=== PATIENT | male | born 1970 ===

== ENCOUNTER 2017-01-14 06:56 | Day surgery (SDC) | payer BC, OTHER ==
[~2017-01-14 06:56] MED LIST: RINGERS SOLUTION,LACTATED 1,000 ML IV PRN; ceFAZolin SODIUM 1 GM VIAL IV PRN
--- OUTSIDE RECORDS SUMMARY | 2017-01-14 07:01 | XMS REPORT | Continuity of Care Document ---
:1970 Author Organization [facility] ([facility]) Address [address] [place] [address] Phone [phone] Care Team Providers Name Role Phone Entry, Pending Dictionary Primary Care Provider Unavailable Source Comments This disclosure is being made pursuant to the Care Everywhere program, applicable federal and state laws, and may not contain all informaitonavailable regarding this patient.[facility] ([facility]) Active Allergies and Adverse Reactions No Known Allergies Current Medications Prescription Sig. Disp. Refills Start Date End Date Status FINACEA 15 % gel 04/23/2016 Active timolol 0.5 % Instill 1 Drop onto 10 mL 11 04/30/2016 Active ophthalmic gel-forming both eyes daily. solution latanoprost 0.005 % Instill 1 Drop onto 2.5 mL 11 04/30/2016 Active ophthalmic solution both eyes every evening. brimonidine 0.2 % Instill 1 Drop onto 10 mL 11 04/30/2016 Active ophthalmic solution the right eye 2 times daily. 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 Most Recent Encounters Date Type Specialty Providers Description 11/05/2016 Office Visit Ophthalmology - Jorge L Lewis, Subj: Upcoming Appt Specialty MD Reminder Social History Tobacco Use Types Packs/Day Years Used Date Never Smoker Smokeless Tobacco: Never Used Alcohol Use Drinks/Week oz/Week Comments No Last Filed Vital Signs Vital Sign Reading Time Taken Blood Pressure 125/91 06/18/2011 7:09 AM CDT Pulse 76 06/18/2011 7:09 AM CDT Temperature 36.3 C (97.3 F) 06/18/2011 7:09 AM CDT Respiratory Rate - - Height 1.71 m (5' 7.32") 06/18/2011 7:09 AM CDT Weight 77.7 kg (171 lb 4.8 oz) 06/18/2011 7:09 AM CDT Body Mass Index 26.57 06/18/2011 7:09 AM CDT Oxygen Saturation - - Plan of Care Health Maintenance Due Date Last Done Comments Hepatitis B Vaccine (1 of 3 - Primary Series) 1970 Tdap Vaccine 1980 Lipid Disorder Screening 1987 MMR Vaccine 1987 Td Vaccine 1987 Influenza Vaccine: Seasonal (#1) 06/22/2016 Results from Last 3 Months Not on file
--- OUTSIDE RECORDS SUMMARY | 2017-01-14 07:01 | XMS REPORT | Continuity of Care Document ---
:1970 Author Organization [facility] [place] [address] Care Team Providers Name Role Phone Michele Arthur Primary Care Provider [phone] Source Comments This disclosure is being made pursuant to the [employer] program and maynot contain all information available regarding this patient.[facility] Active Allergies and Adverse Reactions Not on File Current Medications Be aware that medications may not be up to date as of this document. Alwaysverify current medications with the patient. Not on file Active Problems Not on file Social History Tobacco Use Types Packs/Day Years Used Date Never Smoker Last Filed Vital Signs Vital Sign Reading Time Taken Blood Pressure 120/72 06/14/2013 10:46 AM CDT Pulse 68 08/26/2012 11:03 AM CDT Temperature 36.5 C (97.7 F) 08/26/2012 11:03 AM CDT Respiratory Rate 14 08/26/2012 11:03 AM CDT Height 1.727 m (5' 8") 06/14/2013 10:46 AM CDT Weight 78.019 kg (172 lb) 06/14/2013 10:46 AM CDT Body Mass Index 26.16 06/14/2013 10:46 AM CDT Oxygen Saturation - - Plan of Care Health Maintenance Due Date Last Done Comments Retired-Pertussis Vaccine Adult 1988 Retired-Tetanus Vaccine Adult 1989 Retired-INFLUENZA VACCINE 07/23/2015 Results from Last 3 Months Not on file
[2017-01-14] MEDS ORDERED: RINGERS SOLUTION,LACTATED 1,000 ML IV ONE (07:25)
[2017-01-14] MEDS ORDERED: BUPIVACAINE HCL 50 ML VIAL IJ ONE (08:00)
--- NOTE | 2017-01-14 08:21 | OR ---
Operative Report - Dictated Report Narrative: Date: 01/14/2017 Physician: Tim Hill M.D. Set Builder: Eric Arthur PA-C Preoperative diagnosis: Left Carpal tunnel syndrome Postoperative diagnosis: Left Carpal tunnel syndrome Procedure: Open left carpal tunnel release Anesthesia: MAC plus local Complications: None Estimated blood loss: Minimal Tourniquet time: 8 Minutes at 250 mmHg Specimens: None Retained implants: None Drains: None Indications: Dane Is a 46 year-old male who has been followed in my clinic with complaints of carpal tunnel syndrome. Physical exam as well as diagnostic testing showed compression of the median nerve compatible with carpal tunnel syndrome. Conservative measures have failed including but not limited to activity modification, medications, and/or bracing. The risks, benefits, and alternatives were discussed in clinic. The risks being bleeding, infection, nerve, tendon, blood vessel injury, persistent pain, wound complications, weakness, palm pain, need for additional procedures, and persistent symptoms. Consent was obtained in the clinic. Procedure: After marking the correct extremity in the preoperative holding area, a timeout was performed in the operating room. IV antibiotics consisting of 2 grams of Ancef were administered prior to the procedure. A well-padded tourniquet was applied to the operative upper arm. The arm was exsanguinated and the tourniquet was inflated to 250 mmHg. 0.5% Marcaine without epinephrine was infused into the projected incision site. Using Loupe magnification, a longitudinal incision was made in line with the longitudinal hypothenar crease, or approximately in line with the ring finger, from just distal to the wrist flexion crease and extending approximately 2.5 cm distally. Blunt dissection and hemostasis with bipolar cautery was carried out throught the subcutaneous tissue and palmar fascia down to the level of the transverse carpal ligament. Ragnel retractors were used to retract the surrounding soft tissue and provide good visualization of the transverse carpal ligament. The transverse carpal ligament was then sharply incised longitudinally with a 15-blade scalpel. A [place] elevator was then slid underneath the transverse carpal ligament distally , protecting the median nerve, and the remaining distal portion of the transverse carpal ligament was sharply divided. This was then repeated proximally to divide the remaining proximal portion. Tenotomy scissors were used to divide any remaining transverse carpal ligament and palmar fascia distally being careful to avoid the superficial palmar arch. The distal forearm fascia was released ensuring that the median nerve was completely decompressed utilizing tenotomy scissors. The median nerve was then carefully inspected. Once it was felt that all the tissues overlying the median nerve were completely released, the wounds were thoroughly irrigated with saline. Tourniquet was deflated and hemostasis was obtained with pressure as well as bipolar cautery. Once bleeding had resolved and there was no excessive bleeding , the wounds were closed with interrupted 4-0 nylon. Xeroform, 4 x 4's, soft roll, and a well-padded dorsal short arm wrist splint was applied. The patient was awoken and transferred to the post-anesthesia care unit in stable condition. All sponge, needle, blade, and instrument counts were correct prior to closing the wounds. Additional 0.5% Marcaine without epinephrine was infused into the skin edges for pain control.
[2017-01-14] MEDS ORDERED: oxyCODONE HCL/ACETAMINOPHEN 1 TAB TABLET PO PRN (08:53)
[2017-01-14] MEDS ORDERED: HYDROmorphone HCL 2 MG/ML VIAL IV PRN (08:53)
[2017-01-14] MEDS ORDERED: RINGERS SOLUTION,LACTATED 1,000 ML IV PRN (08:54)
[2017-01-14 09:32] VITALS: BP 119/69
== END 2017-01-14 06:57 | disposition home or self-care (01) ==
LOC: AMB 06:56
PROVIDERS: ATTEND Orthopaedic Surgery
PROC: 01N50ZZ Release Median Nerve, Open Approach (ICD-10-PCS; principal; 2017-01-14 08:00)
DX: G56.02 Carpal tunnel syndrome, left upper limb (principal); Z68.29 Body mass index [BMI] 29.0-29.9, adult